=== PATIENT | male | born 1960 | race Hispanic/Latino ===

== ENCOUNTER 2017-04-30 11:46 | Outpatient (CLI) | payer MEDICARE ==
--- NOTE | 2017-04-30 13:32 | XRay Report ---
AP standing right and left knee: Findings: There is narrowing noted of the medial compartment of the right and left knee joint. Sclerotic adjacent articular surfaces with peripheral osteophyte suggestive of severe degenerative changes being more pronounced at right knee. [id number] degenerative changes of the lateral compartment. No soft tissue calcification. Impression: Findings as detailed above.
== END 2017-04-30 11:47 | disposition home or self-care (01) ==
LOC: XRAY 11:46
PROVIDERS: ATTEND General Practice
DX: M17.0 Bilateral primary osteoarthritis of knee (principal); M25.551 Pain in right hip
CPT/HCPCS: 73565

== ENCOUNTER 2017-11-04 11:58 | Emergency (ER) | payer MEDICARE ==
[2017-11-04] MEDS ORDERED: LASIX IV ONE (13:03)
--- NOTE | 2017-11-04 13:09 | Emergency Department Report ---
ED General Adult HPI - General Chief complaint: Extremity Injury, Lower Stated complaint: LEG PAIN/WEAKNESS Time Seen by Provider: 11/04/17 12:52 Source: patient, EMS Mode of arrival: Stretcher Limitations: Physical Limitation - History of Present Illness Initial comments: Patient is 57 years old male morbidly obese with history of congestive heart failure and chronic bilateral lower extremity lymphedema. Patient supposed to be on Lasix but he stated that he does not have any medication. He presented today with bilateral lower extremity swelling and pain. Patient denied any chest pain or shortness of breath or any other complaint. He stated that he just wants something to help with his lower extremity swelling and pain. - Related Data Home Medications Medication Instructions Recorded Confirmed Last Taken Allopurinol 300 mg PO QDAY 09/07/13 09/07/13 Unknown Previous Rx's Medication Instructions Recorded Last Taken Type Saccharomyces Boulardii [Florastor] 250 mg PO BID #20 capsule 12/10/14 Unknown Rx Levofloxacin [Levaquin] 250 mg PO QDAY #2 tablet 12/11/14 Unknown Rx Furosemide [Lasix] 20 mg PO BID #20 tablet 11/04/17 Unknown Rx Potassium Chloride [K-Dur] 10 meq PO QDAY #20 tablet 11/04/17 Unknown Rx Allergies Allergy/AdvReac Type Severity Reaction Status Date / Time No Known Allergies Allergy Verified 09/07/13 20:20 ED Review of Systems ROS: Stated complaint: LEG PAIN/WEAKNESS Other details as noted in HPI Comment: All other systems reviewed and negative Constitutional: denies: chills, fever Respiratory: denies: cough, shortness of breath, SOB with exertion Cardiovascular: denies: chest pain, palpitations, dyspnea on exertion Gastrointestinal: denies: abdominal pain, nausea, vomiting, diarrhea, constipation, hematemesis Musculoskeletal: denies: back pain Neurological: denies: headache, weakness ED Past Medical Hx - Past Medical History Hx Hypertension: Yes Hx Congestive Heart Failure: Yes Hx Diabetes: No Hx Asthma: No Hx COPD: No Hx HIV: No Additional medical history: gout, peripheral vascular disease - Surgical History Additional Surgical History: debridement of Right leg - Social History Smoking Status: Never Smoker Substance Use Type: None - Medications Home Medications: Home Medications Medication Instructions Recorded Confirmed Last Taken Type Allopurinol 300 mg PO QDAY 09/07/13 09/07/13 Unknown History Saccharomyces Boulardii [Florastor] 250 mg PO BID #20 capsule 12/10/14 Unknown Rx Levofloxacin [Levaquin] 250 mg PO QDAY #2 tablet 12/11/14 Unknown Rx Furosemide [Lasix] 20 mg PO BID #20 tablet 11/04/17 Unknown Rx Potassium Chloride [K-Dur] 10 meq PO QDAY #20 tablet 11/04/17 Unknown Rx ED Physical Exam - General Limitations: Physical Limitation General appearance: alert, in no apparent distress, other (patient is morbidly obese) - Head Head exam: Present: atraumatic, normocephalic - Eye Eye exam: Present: normal appearance, PERRL - ENT ENT exam: Present: normal exam, normal orophraynx, mucous membranes moist - Neck Neck exam: Present: normal inspection, full ROM. Absent: meningismus - Respiratory Respiratory exam: Present: normal lung sounds bilaterally. Absent: respiratory distress, wheezes, rales, rhonchi, stridor, chest wall tenderness, accessory muscle use, decreased breath sounds, prolonged expiratory - Cardiovascular Cardiovascular Exam: Present: regular rate, normal rhythm, normal heart sounds - GI/Abdominal GI/Abdominal exam: Present: soft, normal bowel sounds. Absent: distended, tenderness, guarding, rebound, rigid, organomegaly, mass, bruit, pulsatile mass - Extremities Exam Extremities exam: Present: normal inspection, pedal edema (4+) - Back Exam Back exam: Present: normal inspection. Absent: tenderness, CVA tenderness (R), CVA tenderness (L) - Neurological Exam Neurological exam: Present: alert, oriented X3, CN II-XII intact - Skin Skin exam: Present: warm, intact, normal color ED Course Vital Signs 11/04/17 12:41 Temperature 98.8 F Pulse Rate 109 H Respiratory 17 Rate Blood Pressure 135/82 O2 Sat by Pulse 98 Oximetry - Reevaluation(s) Reevaluation #1: 11/04/17 17:13 Patient stated that he is feeling much better. He denied chest pain and shortness of breath. ED Medical Decision Making - Lab Data Result diagrams: 11/04/17 13:09 11/04/17 13:09 Critical care attestation.: If time is entered above; I have spent that time in minutes in the direct care of this critically ill patient, excluding procedure time. ED Disposition Clinical Impression: Peripheral edema, Lymphedema Disposition: - TO HOME OR SELFCARE Is pt being admited?: No Condition: Stable Instructions: Leg Edema (ED), Lymphedema (ED) Prescriptions: Furosemide [Lasix] 20 mg PO BID #20 tablet Potassium Chloride [K-Dur] 10 meq PO QDAY #20 tablet Referrals: PRIMARY CARE, [Primary Care Provider] - 3-5 Days
[2017-11-04 13:30] LABS: Basophils % (Auto) 0.5 % (0.0-1.8); Eosinophils % (Auto) 0.6 % (0.0-4.3); Hematocrit 31.3 % (35.5-45.6); Mean Corpuscular HGB Conc 32 % (32-34); Platelet Count 239 K/mm3 (140-440); Red Cell Distribution Width 17.6 % (13.2-15.2); White Blood Count 8.1 K/mm3 (4.5-11.0)
[2017-11-04 13:35] LABS: Mean Corpuscular Hemoglobin 21 pg (28-32); Mean Corpuscular Volume 65 fl (84-94)
[2017-11-04 13:46] LABS: Alanine Aminotransferase 10 units/L (7-56); Albumin 3.1 g/dL (3.9-5); Albumin/Globulin Ratio 0.8 %; Alkaline Phosphatase 117 units/L (35-129); Anion Gap 17 mmol/L; BUN/Creatinine Ratio 13; Blood Urea Nitrogen 12 mg/dL (9-20); Calcium 8.2 mg/dL (8.4-10.2); Carbon Dioxide 25 mmol/L (22-30); Chloride 106.4 mmol/L (98-107); Glucose 113 mg/dL (75-100); Potassium 4.2 mmol/L (3.6-5.0); Sodium 144 mmol/L (137-145); Total Protein 7.2 g/dL (6.3-8.2)
[2017-11-05 06:00] VITALS: BP 126/76
== END 2017-11-05 06:45 | disposition home or self-care (01) ==
LOC: ED 11:58
DX: R60.0 Localized edema (principal); I89.0 Lymphedema, not elsewhere classified; I10 Essential (primary) hypertension
CPT/HCPCS: 36415; 80053; 83880; 85025; 96374; 99284; J1940

== ENCOUNTER 2018-02-18 16:51 | Inpatient (IN) | payer MEDICARE ==
[2018-02-18] MEDS ORDERED: VANCOMYCIN VIAL IV ONE (18:41)
[2018-02-18] MEDS ORDERED: NACL 0.9% 1000 ML 1,000 ML IV ONE ×2 (18:42→20:09)
[2018-02-18] MEDS ORDERED: VANCOMYCIN PHARMACY TO DOSE IV SCH (19:00)
[2018-02-18] MEDS ORDERED: ZOSYN/NS 4.5GM/100ML 4.5 GM/100 ML VIAL IV SCH (19:00)
[2018-02-18 19:03] LABS: Basophils % (Auto) 0.2 % (0.0-1.8); Eosinophils % (Auto) 0.1 % (0.0-4.3); Hemoglobin 9.5 gm/dl (11.8-15.2); Lymphocytes # (Auto) 1.2 K/mm3 (1.2-5.4); Lymphocytes % (Auto) 8.8 % (13.4-35.0); Mean Corpuscular HGB Conc 32 % (32-34); Monocytes # (Auto) 0.7 K/mm3 (0.0-0.8); Monocytes % (Auto) 5.3 % (0.0-7.3); Platelet Count 308 K/mm3 (140-440); Red Cell Distribution Width 17.4 % (13.2-15.2)
[2018-02-18 19:04] LABS: Mean Corpuscular Hemoglobin 20 pg (28-32); Mean Corpuscular Volume 64 fl (84-94)
[2018-02-18 19:13] LABS: INR 1.3 (0.87-1.13)
[2018-02-18 19:14] LABS: Partial Thromboplastin Time 37.6 Sec. (24.2-36.6)
[2018-02-18 19:15] LABS: Albumin 2.3 g/dL (3.9-5); Calcium 7.7 mg/dL (8.4-10.2)
[2018-02-18 19:25] LABS: Free T4 (Free Thyroxine) 0.99 ng/dL (0.76-1.46)
--- NOTE | 2018-02-18 19:55 | Cat Scan Report ---
FINAL REPORT PROCEDURE: CT HEAD/BRAIN WO CON TECHNIQUE: Computerized tomography of the head was performed without contrast material. Patient positioning limits evaluation. 1172.26 mGy-cm. HISTORY: Right facial droop, depressed mental status. COMPARISON: No prior studies are available for comparison. FINDINGS: Skull and scalp: Degenerative changes at the predental interval. Paranasal sinuses: Normal. Ventricles and subarachnoid spaces: Ventricles are prominent, likely in proportion to the degree of atrophy. Cerebrum: No evidence of hemorrhage, acute infarction or mass. Mild atrophy. Subtle periventricular white matter low attenuation. Cerebellum and brainstem: No evidence of hemorrhage, acute infarction or mass. More focal low attenuation about the right cerebellum/posterior fossa. Vasculature: Normal. Comments: None. IMPRESSION: Atrophy. White matter changes likely chronic small vessel ischemic change. More focal low attenuation in the right cerebellum/posterior fossa, could be related to patient positioning, but also consider encephalomalacia from prior ischemia/infarction. Evaluation is limited by patient positioning. Recommend repeat examination or MRI for further characterization if there is continued clinical concern and if patient has no contraindication to MRI.
[2018-02-18] MEDS ORDERED: NS IV ONE (20:00)
[2018-02-18] MEDS ORDERED: VANCOMYCIN IV ONE (20:00)
--- NOTE | 2018-02-18 21:19 | Emergency Department Report ---
ED General Adult HPI - General Chief complaint: Medical Clearance Stated complaint: MEDICAL CLEARANCE Time Seen by Provider: 02/18/18 18:24 Source: patient, EMS Mode of arrival: Stretcher Limitations: Physical Limitation - History of Present Illness Initial comments: 57-year-old male with a past medical history morbid obesity, hypertension, PVD, gout, and chronic right leg ulcer presents to the hospital because he is unable to care for himself. Patient apparently has a sitter that comes to the house 3 times a week for 3 hours a day and states he needs more assistance. Patient is drowsy upon arrival and only answering questions intermittently. Right facial droop noted. Tachycardic upon presentation. No further history of present illness available Severity scale (0 -10): 0 - Related Data Home Medications Medication Instructions Recorded Confirmed Last Taken Allopurinol 300 mg PO QDAY 09/07/13 09/07/13 Unknown Previous Rx's Medication Instructions Recorded Last Taken Type Saccharomyces Boulardii [Florastor] 250 mg PO BID #20 capsule 12/10/14 Unknown Rx Levofloxacin [Levaquin] 250 mg PO QDAY #2 tablet 12/11/14 Unknown Rx Furosemide [Lasix] 20 mg PO BID #20 tablet 11/04/17 Unknown Rx Potassium Chloride [K-Dur] 10 meq PO QDAY #20 tablet 11/04/17 Unknown Rx Allergies Allergy/AdvReac Type Severity Reaction Status Date / Time No Known Allergies Allergy Verified 09/07/13 20:20 ED Review of Systems ROS: Stated complaint: MEDICAL CLEARANCE Other details as noted in HPI Comment: Unobtainable due to pts medical conditions (falling asleep during questioning) ED Past Medical Hx - Past Medical History Hx Hypertension: Yes Hx Congestive Heart Failure: Yes Hx Diabetes: No Hx Asthma: No Hx COPD: No Hx HIV: No Additional medical history: gout, peripheral vascular disease - Surgical History Additional Surgical History: debridement of Right leg - Social History Smoking Status: Never Smoker Substance Use Type: None - Medications Home Medications: Home Medications Medication Instructions Recorded Confirmed Last Taken Type Allopurinol 300 mg PO QDAY 09/07/13 09/07/13 Unknown History Saccharomyces Boulardii [Florastor] 250 mg PO BID #20 capsule 12/10/14 Unknown Rx Levofloxacin [Levaquin] 250 mg PO QDAY #2 tablet 12/11/14 Unknown Rx Furosemide [Lasix] 20 mg PO BID #20 tablet 11/04/17 Unknown Rx Potassium Chloride [K-Dur] 10 meq PO QDAY #20 tablet 11/04/17 Unknown Rx ED Physical Exam - General Limitations: Physical Limitation - Other Other exam information: General: Morbid obesity Head exam: Atraumatic, normocephalic Eyes exam: Normal appearance ENT: Moist mucous membrane, normal oropharynx Neck exam: Normal inspection, full range of motion, no meningismus nontender Respiratory exam: Clear to auscultation bilateral, no wheezes, rales, crackles Cardiovascular: Tachycardic regular rhythm Abdomen: Soft, nondistended, and nontender, with normal bowel sounds, no rebound, or guarding Extremity: Limited movement. Equal dorsiflexion. Hand reservations specialist. Significant bilateral lower extremity edema Back: Normal Inspection, full range of motion, no tenderness Neurologic: Lethargic but arousable to tactile stimulation. Oriented 1. Right -sided facial droop including the forehead. Equal hand reservations specialist and foot dorsiflexion Psychiatric: normal affect, normal mood Skin: Bilateral lower extremity edema. Chronic right leg ulcer noted. Bilateral erythema and warmth to the lower extremities. Significant tinea Miguel noted with superimposed cellulitis ED Course Vital Signs 02/18/18 02/18/18 02/18/18 17:02 17:10 17:17 Temperature 99.5 F Pulse Rate 127 H 126 H Respiratory 17 23 Rate Blood Pressure 138/65 138/65 Blood Pressure [Right] O2 Sat by Pulse 95 100 100 Oximetry 02/18/18 02/18/18 02/18/18 17:20 17:23 17:25 Temperature 99.5 F Pulse Rate 124 H 126 H Respiratory 20 23 23 Rate Blood Pressure 135/75 Blood Pressure 138/65 [Right] O2 Sat by Pulse 100 100 100 Oximetry 02/18/18 02/18/18 02/18/18 17:26 17:30 17:36 Temperature Pulse Rate 126 H 124 H 124 H Respiratory 22 22 20 Rate Blood Pressure 135/75 138/61 138/61 Blood Pressure [Right] O2 Sat by Pulse 100 100 99 Oximetry 02/18/18 02/18/18 02/18/18 17:40 17:45 17:50 Temperature Pulse Rate 125 H 123 H 124 H Respiratory 20 22 22 Rate Blood Pressure 138/61 134/61 134/61 Blood Pressure [Right] O2 Sat by Pulse 100 100 98 Oximetry 02/18/18 02/18/18 02/18/18 17:56 18:00 18:06 Temperature Pulse Rate 123 H 123 H 121 H Respiratory 19 19 24 Rate Blood Pressure 134/61 134/61 127/58 Blood Pressure [Right] O2 Sat by Pulse 99 96 97 Oximetry 02/18/18 02/18/18 02/18/18 18:10 18:15 18:20 Temperature Pulse Rate 121 H 122 H 122 H Respiratory 16 18 18 Rate Blood Pressure 127/58 119/57 119/57 Blood Pressure [Right] O2 Sat by Pulse 97 97 95 Oximetry 02/18/18 02/18/18 02/18/18 18:26 18:30 18:36 Temperature Pulse Rate 122 H 125 H 124 H Respiratory 18 25 H 20 Rate Blood Pressure 119/57 131/60 131/60 Blood Pressure [Right] O2 Sat by Pulse 97 97 97 Oximetry 02/18/18 02/18/18 02/18/18 18:40 18:45 18:50 Temperature Pulse Rate 125 H 124 H 124 H Respiratory 22 21 20 Rate Blood Pressure 131/60 134/54 134/54 Blood Pressure [Right] O2 Sat by Pulse 97 97 98 Oximetry 02/18/18 02/18/18 02/18/18 18:56 19:00 19:06 Temperature Pulse Rate 123 H 123 H 123 H Respiratory 21 24 22 Rate Blood Pressure 134/54 131/60 112/52 Blood Pressure [Right] O2 Sat by Pulse 97 96 97 Oximetry 02/18/18 02/18/18 02/18/18 19:10 19:15 19:20 Temperature Pulse Rate 121 H 122 H 120 H Respiratory 24 24 36 H Rate Blood Pressure 112/52 121/56 121/56 Blood Pressure [Right] O2 Sat by Pulse 97 96 97 Oximetry 02/18/18 02/18/18 02/18/18 20:22 20:30 20:40 Temperature Pulse Rate 123 H 123 H 122 H Respiratory 24 20 19 Rate Blood Pressure 112/52 116/58 116/58 Blood Pressure [Right] O2 Sat by Pulse 97 95 91 Oximetry 02/18/18 02/18/18 02/18/18 20:50 21:00 21:10 Temperature Pulse Rate 123 H 130 H 123 H Respiratory 24 37 H 26 H Rate Blood Pressure 116/58 127/58 116/58 Blood Pressure [Right] O2 Sat by Pulse 95 96 Oximetry 02/18/18 02/18/18 02/18/18 21:20 21:30 21:40 Temperature Pulse Rate 122 H 120 H 120 H Respiratory 21 16 16 Rate Blood Pressure 116/58 121/54 121/54 Blood Pressure [Right] O2 Sat by Pulse 95 93 90 Oximetry 02/18/18 02/18/18 02/18/18 21:50 22:00 22:10 Temperature Pulse Rate 121 H 119 H 119 H Respiratory 17 17 16 Rate Blood Pressure 121/54 117/56 121/54 Blood Pressure [Right] O2 Sat by Pulse 75 L 89 89 Oximetry 02/18/18 02/18/18 02/18/18 22:20 22:30 22:40 Temperature Pulse Rate 117 H 120 H 121 H Respiratory 16 17 16 Rate Blood Pressure 121/54 121/52 117/56 Blood Pressure [Right] O2 Sat by Pulse 84 89 82 L Oximetry 02/18/18 02/18/18 02/18/18 22:50 23:00 23:10 Temperature Pulse Rate 120 H 123 H 127 H Respiratory 19 24 25 H Rate Blood Pressure 117/56 115/54 121/52 Blood Pressure [Right] O2 Sat by Pulse 95 80 L 85 Oximetry 02/18/18 02/18/18 02/18/18 23:18 23:20 23:24 Temperature 98 F Pulse Rate 119 H 120 H Respiratory 17 17 Rate Blood Pressure 121/52 121/52 Blood Pressure [Right] O2 Sat by Pulse 87 88 Oximetry 02/18/18 02/18/18 02/18/18 23:30 23:32 23:40 Temperature 98 F Pulse Rate 123 H 123 H Respiratory 22 21 Rate Blood Pressure 106/60 106/60 Blood Pressure [Right] O2 Sat by Pulse 92 93 Oximetry 02/18/18 02/19/18 02/19/18 23:50 00:00 00:10 Temperature Pulse Rate 116 H 118 H 128 H Respiratory 18 17 37 H Rate Blood Pressure 106/60 96/50 106/60 Blood Pressure [Right] O2 Sat by Pulse 96 96 97 Oximetry 02/19/18 00:20 Temperature Pulse Rate 116 H Respiratory 17 Rate Blood Pressure 106/60 Blood Pressure [Right] O2 Sat by Pulse 94 Oximetry - Reevaluation(s) Reevaluation #1: 02/18/18 22:44 Patient appears to be drowsy ED stay 02/18/18 22:49 Addition dilaudid ordered. Patient resting comfortably but states she is having significant pain. Patient's daughter coming out of the room multiple times over several hours and sitting the patient needs more pain medication. ED Medical Decision Making - Lab Data Result diagrams: 02/18/18 18:42 02/18/18 18:42 Lab Results 02/18/18 02/18/18 02/18/18 Range/Units 18:42 18:42 18:42 WBC 13.1 H (4.5-11.0) K/mm3 RBC 4.70 (3.65-5.03) M/mm3 Hgb 9.5 L (11.8-15.2) gm/dl Hct 30.0 L (35.5-45.6) % MCV 64 L (84-94) fl MCH 20 L (28-32) pg MCHC 32 (32-34) % RDW 17.4 H (13.2-15.2) % Plt Count 308 (140-440) K/mm3 Lymph % (Auto) 8.8 L (13.4-35.0) % [place] % (Auto) 5.3 (0.0-7.3) % Eos % (Auto) 0.1 (0.0-4.3) % Baso % (Auto) 0.2 (0.0-1.8) % Lymph # 1.2 (1.2-5.4) K/mm3 [place] # 0.7 (0.0-0.8) K/mm3 Eos # 0.0 (0.0-0.4) K/mm3 Baso # 0.0 (0.0-0.1) K/mm3 Seg Neutrophils % 85.6 H (40.0-70.0) % Seg Neutrophils # 11.2 H (1.8-7.7) K/mm3 PT 16.9 H (12.2-14.9) Sec. INR 1.30 H (0.87-1.13) APTT 37.6 H (24.2-36.6) Sec. VBG pH (7.320-7.420) Sodium 132 L (137-145) mmol/L Potassium 3.6 (3.6-5.0) mmol/L Chloride 96.4 L (98-107) mmol/L Carbon Dioxide 24 (22-30) mmol/L Anion Gap 15 mmol/L BUN 28 H (9-20) mg/dL Creatinine 1.4 (0.8-1.5) mg/dL Estimated GFR 52 ml/min BUN/Creatinine Ratio 20 % Glucose 153 H (75-100) mg/dL POC Glucose (70-105) Lactic Acid (0.7-2.0) mmol/L Calcium 7.7 L (8.4-10.2) mg/dL Total Bilirubin 1.00 (0.1-1.2) mg/dL AST 29 (5-40) units/L ALT 15 (7-56) units/L Alkaline Phosphatase 148 H (35-129) units/L Total Protein 6.5 (6.3-8.2) g/dL Albumin 2.3 L (3.9-5) g/dL Albumin/Globulin Ratio 0.5 % TSH (0.270-4.200) mlU/mL Free T4 (0.76-1.46) ng/dL 02/18/18 02/18/18 02/18/18 Range/Units 18:42 18:42 18:42 WBC (4.5-11.0) K/mm3 RBC (3.65-5.03) M/mm3 Hgb (11.8-15.2) gm/dl Hct (35.5-45.6) % MCV (84-94) fl MCH (28-32) pg MCHC (32-34) % RDW (13.2-15.2) % Plt Count (140-440) K/mm3 Lymph % (Auto) (13.4-35.0) % [place] % (Auto) (0.0-7.3) % Eos % (Auto) (0.0-4.3) % Baso % (Auto) (0.0-1.8) % Lymph # (1.2-5.4) K/mm3 [place] # (0.0-0.8) K/mm3 Eos # (0.0-0.4) K/mm3 Baso # (0.0-0.1) K/mm3 Seg Neutrophils % (40.0-70.0) % Seg Neutrophils # (1.8-7.7) K/mm3 PT (12.2-14.9) Sec. INR (0.87-1.13) APTT (24.2-36.6) Sec. VBG pH 7.396 (7.320-7.420) Sodium (137-145) mmol/L Potassium (3.6-5.0) mmol/L Chloride (98-107) mmol/L Carbon Dioxide (22-30) mmol/L Anion Gap mmol/L BUN (9-20) mg/dL Creatinine (0.8-1.5) mg/dL Estimated GFR ml/min BUN/Creatinine Ratio % Glucose (75-100) mg/dL POC Glucose (70-105) Lactic Acid 1.80 (0.7-2.0) mmol/L Calcium (8.4-10.2) mg/dL Total Bilirubin (0.1-1.2) mg/dL AST (5-40) units/L ALT (7-56) units/L Alkaline Phosphatase (35-129) units/L Total Protein (6.3-8.2) g/dL Albumin (3.9-5) g/dL Albumin/Globulin Ratio % TSH 3.090 (0.270-4.200) mlU/mL Free T4 0.99 (0.76-1.46) ng/dL 02/18/18 Range/Units 18:56 WBC (4.5-11.0) K/mm3 RBC (3.65-5.03) M/mm3 Hgb (11.8-15.2) gm/dl Hct (35.5-45.6) % MCV (84-94) fl MCH (28-32) pg MCHC (32-34) % RDW (13.2-15.2) % Plt Count (140-440) K/mm3 Lymph % (Auto) (13.4-35.0) % [place] % (Auto) (0.0-7.3) % Eos % (Auto) (0.0-4.3) % Baso % (Auto) (0.0-1.8) % Lymph # (1.2-5.4) K/mm3 [place] # (0.0-0.8) K/mm3 Eos # (0.0-0.4) K/mm3 Baso # (0.0-0.1) K/mm3 Seg Neutrophils % (40.0-70.0) % Seg Neutrophils # (1.8-7.7) K/mm3 PT (12.2-14.9) Sec. INR (0.87-1.13) APTT (24.2-36.6) Sec. VBG pH (7.320-7.420) Sodium (137-145) mmol/L Potassium (3.6-5.0) mmol/L Chloride (98-107) mmol/L Carbon Dioxide (22-30) mmol/L Anion Gap mmol/L BUN (9-20) mg/dL Creatinine (0.8-1.5) mg/dL Estimated GFR ml/min BUN/Creatinine Ratio % Glucose (75-100) mg/dL POC Glucose 219 H (70-105) Lactic Acid (0.7-2.0) mmol/L Calcium (8.4-10.2) mg/dL Total Bilirubin (0.1-1.2) mg/dL AST (5-40) units/L ALT (7-56) units/L Alkaline Phosphatase (35-129) units/L Total Protein (6.3-8.2) g/dL Albumin (3.9-5) g/dL Albumin/Globulin Ratio % TSH (0.270-4.200) mlU/mL Free T4 (0.76-1.46) ng/dL - Radiology Data Radiology results: report reviewed read by radiology Ct head noncontrast IMPRESSION: Atrophy. White matter changes likely chronic small vessel ischemic change. More focal low attenuation in the right cerebellum/posterior fossa, could be related to patient positioning, but also consider encephalomalacia from prior ischemia/infarction. Evaluation is limited by patient positioning. Recommend repeat examination or MRI for further characterization if there is continued clinical concern and if patient has no contraindication to MRI. cxr portable IMPRESSION: Left greater than right central vascular prominence and perihilar indistinctness. Left upper and lower lobe opacities. Consider findings could be partly related to patient rotation. Consider asymmetric congestive heart failure or pneumonitis. - Medical Decision Making We were unable to obtain a urine sample since nurse was unable to pass [place] catheter upon multiple attempts. Zosyn and vancomycin ordered for conjunctivitis. Heart rate improving to 109 with IV fluids. Patient will be admitted for further IV antibiotics and fluids for dehydration and cellulitis. Hospitalist informed - Differential Diagnosis debility, cva, encephalopathy, cellulitis Critical Care Time: No Critical care attestation.: If time is entered above; I have spent that time in minutes in the direct care of this critically ill patient, excluding procedure time. ED Disposition Clinical Impression: Tinea cruris, Cellulitis, Dehydration, Microcytic anemia, Chronic ulcer of right leg, Lymphedema of leg, Morbid obesity, Sleep apnea Disposition: OP ADMIT IP TO THIS HOSP Is pt being admited?: Yes Condition: Stable Time of Disposition: 21:18 (Dr Gupta/hosp)
[2018-02-18] MEDS: VANCOMYCIN 2,000 MG in NACL 0.9% 500 ML 500 ML IV SCH (22:40)
[2018-02-18] MEDS ORDERED: DILAUDID IV ONE (22:49)
[2018-02-18] MEDS ORDERED: TYLENOL PO PRN (22:55)
[2018-02-18] MEDS ORDERED: ZOFRAN IV PRN (22:57)
[2018-02-18] MEDS ORDERED: D50W (25GM) Syringe IV PRN (23:01)
--- NOTE | 2018-02-19 00:36 | XRay Report ---
FINAL REPORT PROCEDURE: XR CHEST 1V AP TECHNIQUE: A portable AP chest radiograph was obtained at 02/19/2018 04:30 ([facility]) . CPT 35415 HISTORY: Shortness of breath. COMPARISON: No prior studies are available for comparison. FINDINGS: Heart: Normal. Mediastinum/Vessels: Normal. Lungs/Pleural space: Left greater than right central vascular prominence and perihilar indistinctness. Left upper and lower lobe opacities. Bony thorax: No acute osseous abnormality. Life support devices: None. IMPRESSION: Left greater than right central vascular prominence and perihilar indistinctness. Left upper and lower lobe opacities. Consider findings could be partly related to patient rotation. Consider asymmetric congestive heart failure or pneumonitis.
[2018-02-19] MEDS: ZOSYN/NS 3.375GM/50ML 3.375 GM/50 ML BAG IV SCH ×3 (05:53→22:32)
--- NOTE | 2018-02-19 06:46 | History and Physical Report ---
CHIEF COMPLAINT: Skin excoriation in the groin area. HISTORY OF PRESENT ILLNESS: The patient is a 57-year-old with past history of morbid obesity, hypertension, peripheral vascular disease and gout, presenting to the hospital because of excoriation in the groin area and inability to take care of it. The patient was noted to be visited by his sister about 3 times a week, and the sister noted that the patient needs assistance. They have also complained of change in mental status and rapid heart disease. There is no history of fever, no history of chest pain, chills or shortness of breath. The patient was seen and presented for admission because of skin excoriation in the groin area and inability to take care of spells of rapid heartbeat. PAST MEDICAL HISTORY: Pertinent for hypertension, congestive heart failure, gout, peripheral vascular disease. PAST SURGICAL HISTORY: Pertinent for right leg surgery. FAMILY HISTORY: Noncontributory. SOCIAL HISTORY: The patient lives alone and is unable to take care of himself. Does not smoke, does not drink alcohol and does not use illicit. MEDICATIONS: The patient is on allopurinol 300 mg by mouth daily. ALLERGIES: There are no known drug allergies. REVIEW OF SYSTEMS: CONSTITUTIONAL: There is no fever, no chills. No diaphoresis. HEENT: There is no headache or sore throat. CARDIOVASCULAR: There is no chest pain or orthopnea. RESPIRATORY: There is no shortness of breath or cough. GASTROINTESTINAL: There is no nausea, no vomiting, no abdominal pain, diarrhea or constipation. NEUROLOGICAL: There is change in mental status with no numbness and no dizziness. MUSCULOSKELETAL: There is no joint pain, swelling. DERMATOLOGICAL: There is skin excoriation in the groin area. No itching. GENITOURINARY: There is no dysuria, hematuria or flank pain. Rest of system review is normal. PHYSICAL EXAMINATION: GENERAL: At the time of exam, the patient was found to be lethargic, but arousable and not in acute disease. VITAL SIGNS: Shows temperature of 98.5, pulse of 112, respirations 15, blood pressure 103/53, O2 sat of 95% on room air. HEENT: Show pupils to be equal, round, reactive to light and accommodating. Extraocular muscles are intact. NECK: Supple with no JVD or carotid bruit. CARDIOVASCULAR: Showed normal first and second heart sounds, with no gallops or murmurs. There is rapid heart rate. RESPIRATORY: Show good air entry on both sides of the lung with no abnormal breath sounds. GASTROINTESTINAL: Show abdomen to be full, soft, nontender with no organomegaly or rigidity. NEUROLOGIC: Shows the patient to be lethargic but arousable with no focal deficit. MUSCULOSKELETAL: Show no joint swelling or tenderness. DERMATOLOGICAL: Shows excoriation of skin in both groin areas with some fluid oozing out. GENITOURINARY: Shows no costovertebral angle tenderness. PERTINENT LABORATORY AND IMAGING STUDIES: The patient has CBC done with elevated white count of 13,100; with low hemoglobin of 9.5; low hematocrit of 30; with low MCV of 64 and CBC differential shows elevated neutrophilic count of 85.6%, with coagulation studies showing elevated PT of 16.9 and slightly elevated INR of 1.3. The patient's chemistry shows low sodium of 132, low chloride of 96.4, with normal potassium level, elevated BUN of 28, with normal creatinine and slightly low GFR of 52, with elevated blood glucose of 219 and low albumin level of 2.3. IMAGING STUDIES: The patient had CT of the head done that shows atrophic, with white matter likely chronic small vessel ischemic changes. There is finding of small local attenuation in the right cerebellum and posterior fossa, which the radiologist said could be related to patient positioning, but also considering encephalomalacia from prior ischemic infarction and radiology says that evaluation is limited by the patient positioning and they recommended repeat examination on MRI for further characterization if there is continued clinical concern and if the patient has no contraindication for MRI. The patient also had chest x-ray done and chest x-ray showed left greater than right central vascular prominence and perihilar indistinctness. He has left upper and lower lobe opacities and the radiologist states consider findings could be partly related to the patient's ____ to consider asymmetric congestive heart failure or pneumonitis. DIAGNOSES: 1. Cellulitis on the groin. 2. Tachycardia. 3. Hyperglycemia. PLAN: The patient will be admitted to medical floor and we will have consult with the wound care group. The patient will also be placed on a consistent carbohydrate diet because of finding of hyperglycemia. The patient will be on Accu-Chek a.c. and at bedtime, followed by sliding scale using Humalog insulin dose for coverage for blood sugar greater than 180 mg/dL. The patient will be on IV Zosyn 3.375 g q. 8 hours and will continue IV vancomycin with pharmacy to dose started by the Emergency Room physician. The patient will be on Tylenol 650 mg by mouth every 4 hours for fever and headache and will be on his own medications as shown in the medication reconciliation section. JOB# [id number] OCN/NTS
[2018-02-19] MEDS: HumuLIN R SUB-Q SCH ×3 (08:18→17:33)
[2018-02-19] MEDS: VANCOMYCIN 2,000 MG in NACL 0.9% 500 ML 500 ML IV SCH ×2 (08:30→22:32)
[2018-02-19 09:33] LABS: Basophils # (Auto) 0.1 K/mm3 (0.0-0.1); Basophils % (Auto) 0.5 % (0.0-1.8); Eosinophils # (Auto) 0.1 K/mm3 (0.0-0.4); Eosinophils % (Auto) 0.9 % (0.0-4.3); Hemoglobin 9.3 gm/dl (11.8-15.2); Lymphocytes # (Auto) 1.7 K/mm3 (1.2-5.4); Lymphocytes % (Auto) 16.2 % (13.4-35.0); Mean Corpuscular HGB Conc 32 % (32-34); Monocytes # (Auto) 0.4 K/mm3 (0.0-0.8); Monocytes % (Auto) 3.4 % (0.0-7.3); Platelet Count 316 K/mm3 (140-440); Red Blood Count 4.55 M/mm3 (3.65-5.03); Red Cell Distribution Width 17.3 % (13.2-15.2)
[2018-02-19 09:37] LABS: Mean Corpuscular Volume 64 fl (84-94)
[2018-02-19 09:38] LABS: Mean Corpuscular Hemoglobin 21 pg (28-32)
[2018-02-19 09:44] LABS: Calcium 7.7 mg/dL (8.4-10.2)
[2018-02-19] MEDS: MORPHINE IV PRN (10:17)
[2018-02-19] MEDS: HEPARIN SUB-Q SCH ×2 (12:05→22:46)
[2018-02-19] MEDS: LASIX PO SCH ×2 (12:07→22:45)
[2018-02-19] MEDS: LACTINEX PO SCH ×2 (12:07→22:45)
[2018-02-19] MEDS: K-DUR PO SCH (12:07)
[2018-02-19] MEDS: ZYLOPRIM PO SCH (12:07)
[2018-02-19 12:36] LABS: Bacteria,Urine 1+ /HPF (Negative); Bilirubin,Urine NEG (Negative); Blood,Urine MOD (Negative); Color,Urine Yellow (Yellow); Mucus,Urine FEW /HPF; Protein,Urine <15 mg/dL mg/dL (Negative)
--- NOTE | 2018-02-19 16:50 | Progress Note ---
Assessment and Plan Assessment and plan: Generalized weakness - Patient is not able to take care of himself, and needs placement Cellulitis of the groin area -Patient is on IV vancomycin and Zosyn -blood culture is positive gram positive cocci in clusters Chest x-ray - Opacity and plan was to do a CT scan but patient refused Hyperglycemia - SSI Sleep apnea - On CPAP DVT prophylaxis Disposition - SNF History Interval history: Patient was seen and evaluated this morning, patient was lying in bed comfortably. The main reason he come to the the hospital is for inability to taking care of himself. Hospitalist Physical - Physical exam Narrative exam: Not in cardiopulmonary distress. The patient is obese. Vital signs as documented. Head exam is unremarkable. No scleral icterus . Neck is without jugular venous distension, thyromegaly, or carotid bruits. Lungs are clear to auscultation. Cardiac exam reveals regular rate and Rhythm. First and second heart sounds normal. No murmurs, rubs or gallops. Abdominal exam reveals normal bowel sounds, no masses, no organomegaly and no aortic enlargement. Excoriation around the perineal area. Extremities are nonedematous and both femoral and pedal pulses are normal. HIGH PRESSURE FIRER: Alert and oriented 3. No focal weakness. - Constitutional Vitals: Temp Pulse Resp BP Pulse Ox 99.5 F 102 H 22 114/55 97 02/19/18 04:50 02/19/18 04:50 02/19/18 04:50 02/19/18 04:50 02/19/18 04:50 Results - Labs CBC & Chem 7: 02/19/18 09:24 02/19/18 09:24 Labs: Laboratory Last Values WBC 10.8 K/mm3 (4.5-11.0) 02/19/18 09:24 RBC 4.55 M/mm3 (3.65-5.03) 02/19/18 09:24 Hgb 9.3 gm/dl (11.8-15.2) L 02/19/18 09:24 Hct 29.0 % (35.5-45.6) L 02/19/18 09:24 MCV 64 fl (84-94) L 02/19/18 09:24 MCH 21 pg (28-32) L 02/19/18 09:24 MCHC 32 % (32-34) 02/19/18 09:24 RDW 17.3 % (13.2-15.2) H 02/19/18 09:24 Plt Count 316 K/mm3 (140-440) 02/19/18 09:24 Lymph % (Auto) 16.2 % (13.4-35.0) 02/19/18 09:24 [place] % (Auto) 3.4 % (0.0-7.3) 02/19/18 09:24 Eos % (Auto) 0.9 % (0.0-4.3) 02/19/18 09:24 Baso % (Auto) 0.5 % (0.0-1.8) 02/19/18 09:24 Lymph # 1.7 K/mm3 (1.2-5.4) 02/19/18 09:24 [place] # 0.4 K/mm3 (0.0-0.8) 02/19/18 09:24 Eos # 0.1 K/mm3 (0.0-0.4) 02/19/18 09:24 Baso # 0.1 K/mm3 (0.0-0.1) 02/19/18 09:24 Seg Neutrophils % 79.0 % (40.0-70.0) H 02/19/18 09:24 Seg Neutrophils # 8.5 K/mm3 (1.8-7.7) H 02/19/18 09:24 PT 16.9 Sec. (12.2-14.9) H 02/18/18 18:42 INR 1.30 (0.87-1.13) H 02/18/18 18:42 APTT 37.6 Sec. (24.2-36.6) H 02/18/18 18:42 VBG pH 7.396 (7.320-7.420) 02/18/18 18:42 Sodium 138 mmol/L (137-145) 02/19/18 09:24 Potassium 3.7 mmol/L (3.6-5.0) 02/19/18 09:24 Chloride 104.3 mmol/L (98-107) 02/19/18 09:24 Carbon Dioxide 22 mmol/L (22-30) 02/19/18 09:24 Anion Gap 15 mmol/L 02/19/18 09:24 BUN 23 mg/dL (9-20) H 02/19/18 09:24 Creatinine 1.3 mg/dL (0.8-1.5) 02/19/18 09:24 Estimated GFR 57 ml/min 02/19/18 09:24 BUN/Creatinine Ratio 18 % 02/19/18 09:24 Glucose 124 mg/dL (75-100) H 02/19/18 09:24 POC Glucose 106 (70-105) H 02/19/18 11:16 Lactic Acid 1.80 mmol/L (0.7-2.0) 02/18/18 18:42 Calcium 7.7 mg/dL (8.4-10.2) L 02/19/18 09:24 Total Bilirubin 1.00 mg/dL (0.1-1.2) 02/18/18 18:42 AST 29 units/L (5-40) 02/18/18 18:42 ALT 15 units/L (7-56) 02/18/18 18:42 Alkaline Phosphatase 148 units/L (35-129) H 02/18/18 18:42 Total Protein 6.5 g/dL (6.3-8.2) 02/18/18 18:42 Albumin 2.3 g/dL (3.9-5) L 02/18/18 18:42 Albumin/Globulin Ratio 0.5 % 02/18/18 18:42 TSH 3.090 mlU/mL (0.270-4.200) 02/18/18 18:42 Free T4 0.99 ng/dL (0.76-1.46) 02/18/18 18:42 Urine Color Yellow (Yellow) 02/18/18 Unknown Urine Turbidity Clear (Clear) 02/18/18 Unknown Urine pH 6.0 (5.0-7.0) 02/18/18 Unknown Ur Specific [place] 1.009 (1.003-1.030) 02/18/18 Unknown Urine Protein <15 mg/dl mg/dL (Negative) 02/18/18 Unknown Urine Glucose (UA) Neg mg/dL (Negative) 02/18/18 Unknown Urine Ketones Neg mg/dL (Negative) 02/18/18 Unknown Urine Blood Mod (Negative) 02/18/18 Unknown Urine Nitrite Neg (Negative) 02/18/18 Unknown Urine Bilirubin Neg (Negative) 02/18/18 Unknown Urine Urobilinogen 2.0 mg/dL (<2.0) 02/18/18 Unknown Ur Leukocyte Esterase Lg (Negative) 02/18/18 Unknown Urine WBC (Auto) 76.0 /HPF (0.0-6.0) H 02/18/18 Unknown Urine RBC (Auto) 25.0 /HPF (0.0-6.0) 02/18/18 Unknown U Epithel Cells (Auto) 1.0 /HPF (0-13.0) 02/18/18 Unknown Urine Bacteria (Auto) 1+ /HPF (Negative) 02/18/18 Unknown Urine Mucus Few /HPF 02/18/18 Unknown
[2018-02-19] MEDS: THERMAZENE 50 GRAM TP SCH (22:49)
[2018-02-20] MEDS: HumuLIN R SUB-Q SCH ×5 (00:17→21:55)
[2018-02-20 05:57] LABS: Basophils % (Auto) 0.4 % (0.0-1.8); Eosinophils # (Auto) 0.1 K/mm3 (0.0-0.4); Eosinophils % (Auto) 1.5 % (0.0-4.3); Hematocrit 27.8 % (35.5-45.6); Lymphocytes # (Auto) 1.7 K/mm3 (1.2-5.4); Lymphocytes % (Auto) 18.9 % (13.4-35.0); Mean Corpuscular HGB Conc 32 % (32-34); Monocytes # (Auto) 0.5 K/mm3 (0.0-0.8); Monocytes % (Auto) 5.1 % (0.0-7.3); Platelet Count 367 K/mm3 (140-440); Red Blood Count 4.34 M/mm3 (3.65-5.03); Red Cell Distribution Width 17.2 % (13.2-15.2)
[2018-02-20] MEDS: ZOSYN/NS 3.375GM/50ML 3.375 GM/50 ML BAG IV SCH (05:58)
[2018-02-20 06:05] LABS: Mean Corpuscular Hemoglobin 21 pg (28-32); Mean Corpuscular Volume 64 fl (84-94)
[2018-02-20] MEDS: MORPHINE IV PRN ×2 (06:20→23:55)
[2018-02-20 06:26] LABS: BUN/Creatinine Ratio 17; Blood Urea Nitrogen 20 mg/dL (9-20); Calcium 7.2 mg/dL (8.4-10.2); Hemolysis Index 19
[2018-02-20] MEDS: VANCOMYCIN 2,000 MG in NACL 0.9% 500 ML 500 ML IV SCH (08:16)
[2018-02-20] MEDS: ZYLOPRIM PO SCH (10:27)
[2018-02-20] MEDS: LASIX PO SCH ×2 (10:27→21:49)
[2018-02-20] MEDS: K-DUR PO SCH (10:27)
[2018-02-20] MEDS: HEPARIN SUB-Q SCH ×2 (10:27→21:49)
[2018-02-20] MEDS: LACTINEX PO SCH ×2 (10:27→21:49)
[2018-02-20] MEDS: THERMAZENE 50 GRAM TP SCH ×2 (10:28→21:50)
[2018-02-20] MEDS ORDERED: ZOSYN/NS 4.5GM/100ML 4.5 GM/100 ML VIAL IV SCH (14:00)
--- NOTE | 2018-02-20 15:26 | Query- Nutrition ---
Dear ____Lila Date:__02/20/2018 Turkey Roll Maker/CDS:___Eduarda Phone#:___[phone] Exercise your independent professional judgment when responding to query. Questions asked do not imply a particular answer is desired or expected. We greatly appreciate your clarification on this issue. Clinical Documentation States: 57 Year old male was admitted on 02/18/2018 for inability to taking care of himself. The Hospitalist (Dr. Sharp) progress note on 02/19/2018 states "Generalized weakness - Patient is not able to take care of himself, and needs placement." Clinical Findings Show: Albumin (02/18): 2.3 Please select the most appropriate option 3 [] Mild Malnutrition [] Mild - Moderate Malnutrition [x] Moderate - Severe Malnutrition [] Severe Malnutrition Serum Albumin 2.8 to 3.4 g/dl or Pre-albumin 5 to 17 mg/dl1,2 Inadequate nutritional intake1,2,3,4 NPO > 5 days Weight loss: 5% in 1 month or 7.5% in 3 months or 10% in 6 months1, 3,4 BMI 16 to 18.4 or Weight <90% of ideal body weight1,2,3,4 Serum Albumin < 2.8 g/ dl1,2 Lymphocytes < 1500/ L2 Inadequate nutritional intake3, high stress e.g. major trauma, sepsis,pancreatitis, leavitt etc. Decubitus ulcers1,2, , skin breakdown2, easy hair pluckability2 Weight <80% standard for height2 Triceps skin fold <3 mm2 Mid-arm muscle circumference <15 cm2 Creatinine-height index <60% standard2 [ ] Cachexia [ ] Emaciated w/Malnutrition [ ] Other: [ ] Unable to determine [ ] Comment/Explanation: Present on Admission: [ x] Yes (Y) [ ] Clinically undeterminable (W) [ ] No (N) Please also document response in your Progress Notes and/or Discharge Summary and indicate if the condition was present on admission. MTDD
--- NOTE | 2018-02-20 15:34 | Query-Infection ---
Dear ____Lila Date:__02/20/2018 Account Development Executive/CDS:___Eduarda Phone#:__[phone] Exercise your independent professional judgment when responding to this query. Questions asked do not imply a particular answer is desired or expected. We greatly appreciate your clarification on this issue. Clinical Documentation States: 57 Year old male was admitted on 02/18/2018 for inability to taking care of himself. The Hospitalist (Dr. Sharp) progress note on 02/19/2018 states "Cellulitis of the groin area -Patient is on IV vancomycin and Zosyn -blood culture is positive gram positive cocci in clusters." Clinical findings show: (please check applicable parameters) WBC: 13.1 PA: 127 RR: 37 Infection, known /suspected, with some of the following indicators; Specify the infection: 3 General parameters [ ] Fever (core temp >38.30C or 100.40F) [ ] Hypothermia (core temp <36C) [X] Heart rate >90 bpm [X] Tachypnea: >20 bpm or pCO2 < 32 mmHg [ ] Altered mental status [ ] Significant edema / +ve fluid balance (>20 ml/kg 24 h) [ ] Hyperglycemia (Bl. glucose >110 mg/dl) w/o diabetes Inflammatory parameters [X] Leukocytosis (white blood cell count >12,000/l) [ ] Leukopenia (white blood cell count <4,000/l) [ ] Bandemia (immature WBC > 10%) [ ] Leucocyte Left Shift [ ] Plasma procalcitonin>2 SD above the normal value Hemodynamic and tissue perfusion parameters [ ] Arterial hypotension(SBP <90 mmHg, MAP <70 mmHg,or a SBP drop >40 mmHg in adults) [ ] Hyperlactatemia (>3 mmol/l) [ ] Anion Gap (> 11mEG/l) [ ] Decreased capillary refill or mottling Organ dysfunction parameters [ ] Arterial hypoxemia (PaO2/FIO2 <300) [ ] Creatinine increase =0.5 mg/dl [ ] Acute oliguria (urine output <0.5 ml | kg |h or 45 mM/l for at least 2 hrs) [ ] Coagulation abnormalities (INR >1.5 or activated partial thromboplastin time >60 s) [ ] Ileus (absent alex wel sounds) [ ] Thrombocytopenia (platelet count <100,000/l) [ ] Hyperbilirubinemia (plasma total bilirubin >4 mg/dl) According to the clinical indications above, can Bacteremia be further specified? If so, please indicate below and in your Progress Notes and/ or Discharge Summary. Indicate if the condition was present on admission. PHYSICIAN RESPONSE: [ x] Sepsis [ ] Severe Sepsis [ ] Septic Shock [ ] Septicemia [ ] Sepsis now resolved [ ] SIRS due to non-infectious cause with organ dysfunction [ ] SIRS due to non-infectious cause without organ dysfunction [ ] Other: [ ] Comment/Explanation: Present on Admission: [ x] Yes (Y) [ ] Clinically undeterminable (W) [ ] No (N) [ ] Ruled Out Please also document response in your Progress Notes and/or Discharge Summary and indicate if the condition was present on admission Notes: SIRS/ SIRS WITH ORGAN DYSFUNCTION Systemic inflammatory response syndrome (SIRS) generally refers to the systemic response to trauma/leavitt or other insult such as Acute Myocardial Infarction, Acute Pancreatitis, and Major Surgery with symptoms including fever, tachycardia , tachypnea, and leukocytosis (1). BACTEREMIA Presence of viable bacteria in the circulating blood (2). This term is reserved for patients that do not manifest above SIRS response. SEPTICEMIA Generally refers to a systemic disease associated with the presence of pathological microorganisms or toxins in the blood, which can include bacteria, viruses, fungi or other organisms (1). SEPSIS Generally refers to SIRS due infection (1). SEVERE SEPSIS Generally refers to sepsis associated with acute organ dysfunction (1). SEPTIC SHOCK Generally refers to circulatory failure associated with severe sepsis (2), and defined as hypotension or hypoperfusion despite adequate fluid resuscitation (1 hour) (3). REFERENCES: 1. [place] [employer]/Society of Critical Care Medicine Consensus Conference. Definitions for sepsis and organ failure and guidelines for the use of innovative therapies in sepsis. Critical Care Med 1992;20:864 - 74. 2. Devon braun MM, Lucia MP, Saulo IZQUIERDO, Umair E, Sukhjinder D, Hunter D, Justin J, Fanny SM , Sonny JL, Capri G; International Sepsis Definitions Conference. 2001 SCCM/ESICM/ACCP/ATS/SIS International Sepsis Definitions Conference. Intensive Care Med. 2002;29(4):530-8. Epub 2002Feb 19. Review. PubMed PMID:21540077 3. ICD-9-CM Official Guidelines for Coding and Reporting 4. Medscape Drugs, Diseases and Procedures references 5. [employer] Textbook of Internal Medicine. 18th Edition MTDD
--- NOTE | 2018-02-20 15:56 | Progress Note ---
Assessment and Plan Assessment and plan: Generalized weakness - Patient is not able to take care of himself, and needs placement Cellulitis of the groin area -Patient is on KEFLEX AND ANTIFUNGAL POWDER -blood culture is positive gram positive cocci in clusters Chest x-ray - Opacity and plan was to do a CT scan but patient refused Hyperglycemia - SSI Sleep apnea - On CPAP DVT prophylaxis Disposition - SNF History Interval history: Patient was seen and evaluated this morning, patient was lying in bed comfortably. The main reason he come to the the hospital is for inability to taking care of himself. Hospitalist Physical - Physical exam Narrative exam: Not in cardiopulmonary distress. The patient is obese. Vital signs as documented. Head exam is unremarkable. No scleral icterus . Neck is without jugular venous distension, thyromegaly, or carotid bruits. Lungs are clear to auscultation. Cardiac exam reveals regular rate and Rhythm. First and second heart sounds normal. No murmurs, rubs or gallops. Abdominal exam reveals normal bowel sounds, no masses, no organomegaly and no aortic enlargement. Excoriation around the perineal area. Extremities are nonedematous and both femoral and pedal pulses are normal. JET INSPECTOR: Alert and oriented 3. No focal weakness. - Constitutional Vitals: Temp Pulse Resp BP Pulse Ox 98.9 F 115 H 24 112/74 96 02/20/18 07:31 02/20/18 07:31 02/20/18 07:31 02/20/18 07:31 02/20/18 07:31 Results - Labs CBC & Chem 7: 02/20/18 04:48 02/20/18 04:48 Labs: Laboratory Last Values WBC 8.9 K/mm3 (4.5-11.0) 02/20/18 04:48 RBC 4.34 M/mm3 (3.65-5.03) 02/20/18 04:48 Hgb 9.0 gm/dl (11.8-15.2) L 02/20/18 04:48 Hct 27.8 % (35.5-45.6) L 02/20/18 04:48 MCV 64 fl (84-94) L 02/20/18 04:48 MCH 21 pg (28-32) L 02/20/18 04:48 MCHC 32 % (32-34) 02/20/18 04:48 RDW 17.2 % (13.2-15.2) H 02/20/18 04:48 Plt Count 367 K/mm3 (140-440) 02/20/18 04:48 Lymph % (Auto) 18.9 % (13.4-35.0) 02/20/18 04:48 [place] % (Auto) 5.1 % (0.0-7.3) 02/20/18 04:48 Eos % (Auto) 1.5 % (0.0-4.3) 02/20/18 04:48 Baso % (Auto) 0.4 % (0.0-1.8) 02/20/18 04:48 Lymph # 1.7 K/mm3 (1.2-5.4) 02/20/18 04:48 [place] # 0.5 K/mm3 (0.0-0.8) 02/20/18 04:48 Eos # 0.1 K/mm3 (0.0-0.4) 02/20/18 04:48 Baso # 0.0 K/mm3 (0.0-0.1) 02/20/18 04:48 Seg Neutrophils % 74.1 % (40.0-70.0) H 02/20/18 04:48 Seg Neutrophils # 6.6 K/mm3 (1.8-7.7) 02/20/18 04:48 PT 16.9 Sec. (12.2-14.9) H 02/18/18 18:42 INR 1.30 (0.87-1.13) H 02/18/18 18:42 APTT 37.6 Sec. (24.2-36.6) H 02/18/18 18:42 VBG pH 7.396 (7.320-7.420) 02/18/18 18:42 Sodium 140 mmol/L (137-145) 02/20/18 04:48 Potassium 3.9 mmol/L (3.6-5.0) 02/20/18 04:48 Chloride 103.0 mmol/L (98-107) 02/20/18 04:48 Carbon Dioxide 23 mmol/L (22-30) 02/20/18 04:48 Anion Gap 18 mmol/L 02/20/18 04:48 BUN 20 mg/dL (9-20) 02/20/18 04:48 Creatinine 1.2 mg/dL (0.8-1.5) 02/20/18 04:48 Estimated GFR > 60 ml/min 02/20/18 04:48 BUN/Creatinine Ratio 17 % 02/20/18 04:48 Glucose 94 mg/dL (75-100) 02/20/18 04:48 POC Glucose 107 (70-105) H 02/20/18 11:46 Lactic Acid 1.80 mmol/L (0.7-2.0) 02/18/18 18:42 Calcium 7.2 mg/dL (8.4-10.2) L 02/20/18 04:48 Total Bilirubin 1.00 mg/dL (0.1-1.2) 02/18/18 18:42 AST 29 units/L (5-40) 02/18/18 18:42 ALT 15 units/L (7-56) 02/18/18 18:42 Alkaline Phosphatase 148 units/L (35-129) H 02/18/18 18:42 Total Protein 6.5 g/dL (6.3-8.2) 02/18/18 18:42 Albumin 2.3 g/dL (3.9-5) L 02/18/18 18:42 Albumin/Globulin Ratio 0.5 % 02/18/18 18:42 TSH 3.090 mlU/mL (0.270-4.200) 02/18/18 18:42 Free T4 0.99 ng/dL (0.76-1.46) 02/18/18 18:42 Urine Color Yellow (Yellow) 02/18/18 Unknown Urine Turbidity Clear (Clear) 02/18/18 Unknown Urine pH 6.0 (5.0-7.0) 02/18/18 Unknown Ur Specific [place] 1.009 (1.003-1.030) 02/18/18 Unknown Urine Protein <15 mg/dl mg/dL (Negative) 02/18/18 Unknown Urine Glucose (UA) Neg mg/dL (Negative) 02/18/18 Unknown Urine Ketones Neg mg/dL (Negative) 02/18/18 Unknown Urine Blood Mod (Negative) 02/18/18 Unknown Urine Nitrite Neg (Negative) 02/18/18 Unknown Urine Bilirubin Neg (Negative) 02/18/18 Unknown Urine Urobilinogen 2.0 mg/dL (<2.0) 02/18/18 Unknown Ur Leukocyte Esterase Lg (Negative) 02/18/18 Unknown Urine WBC (Auto) 76.0 /HPF (0.0-6.0) H 02/18/18 Unknown Urine RBC (Auto) 25.0 /HPF (0.0-6.0) 02/18/18 Unknown U Epithel Cells (Auto) 1.0 /HPF (0-13.0) 02/18/18 Unknown Urine Bacteria (Auto) 1+ /HPF (Negative) 02/18/18 Unknown Urine Mucus Few /HPF 02/18/18 Unknown
[2018-02-20] MEDS: KEFLEX PO SCH ×2 (18:20→23:56)
[2018-02-21] MEDS: KEFLEX PO SCH ×2 (06:17→12:18)
[2018-02-21 07:20] VITALS: BP 110/59
[2018-02-21] MEDS: HumuLIN R SUB-Q SCH ×3 (08:14→20:19)
[2018-02-21] MEDS: MORPHINE IV PRN (09:50)
[2018-02-21] MEDS: HEPARIN SUB-Q SCH (10:51)
[2018-02-21] MEDS: ZYLOPRIM PO SCH (10:57)
[2018-02-21] MEDS: LASIX PO SCH (10:58)
[2018-02-21] MEDS: K-DUR PO SCH (10:58)
[2018-02-21] MEDS: LACTINEX PO SCH (10:58)
[2018-02-21] MEDS: THERMAZENE 50 GRAM TP SCH (10:59)
--- NOTE | 2018-02-21 13:31 | Discharge Summary ---
Providers - Providers Date of Admission: 02/18/18 22:50 Attending physician: RANJAN MUÑOZ MD 02/19/18 05:05 Consult to Case Management [CONS] Routine Services Needed at Discharge: Book Store Associate Notified:: Diane If yes, spoke with:: yes 02/19/18 06:58 Consult to Wound/ET Nurse [CONS] Routine Reason For Exam: wound eval 02/19/18 11:39 Occupational Therapy Evaluate and Treat [CONS] Routine Comment: SNF placement Reason For Exam: Debility Physical Therapy Evaluation and Treat [CONS] Routine Comment: SNF placement Reason For Exam: Debility Primary care physician: GREEN END DEPARTMENT SUPERVISOR Hospitalization Reason for admission: Celluitis of the groin area, placment Condition: Stable Pertinent studies: CXR shoed opacity, patient refused CT Hospital course: 57 year old CM with medical history significant for Bilateral lymphedema, Morbid obesity was admitted to the floor and for the management of sepsis around the groin area. Patient said he is not able to take care of himself. Patient was treated with antibiotic and home meds were continued. patient has abnormal CXR and I want to confirm with CT which he declined. Patient didn't have cough, SOB or chest pain. Patient is poor historian. Patient was discharged to SNF in a stable condition. Appropriate medications were ordered to continue in the SNF. Disposition: DC/[place]-03 SNF W [facility] C[facility] Time spent for discharge: 31 minutes - Discharge Diagnoses (1) Cellulitis Status: Acute (2) Chronic ulcer of right leg Status: Acute (3) Dehydration Status: Acute (4) Sleep apnea Status: Acute (5) Tinea cruris Status: Acute (6) Lymphedema of leg Status: Chronic (7) Microcytic anemia Status: Chronic (8) Morbid obesity Status: Chronic Core Measure Documentation - Palliative Care Palliative Care/ Comfort Measures: Not Applicable - Core Measures Any of the following diagnoses?: none Exam - Physical Exam Narrative exam: Not in cardiopulmonary distress. The patient is obese. Vital signs as documented. Head exam is unremarkable. No scleral icterus . Neck is without jugular venous distension, thyromegaly, or carotid bruits. Lungs are clear to auscultation. Cardiac exam reveals regular rate and Rhythm. First and second heart sounds normal. No murmurs, rubs or gallops. Abdominal exam reveals normal bowel sounds, no masses, no organomegaly and no aortic enlargement. Excoriation around the perineal area. Extremities are nonedematous and both femoral and pedal pulses are normal. REFRIGERATION SPECIALIST: Alert and oriented 3. No focal weakness. - Constitutional Vitals: Temp Pulse Resp BP Pulse Ox 98.5 F 100 H 22 110/59 96 02/21/18 07:15 02/21/18 07:15 02/21/18 09:50 02/21/18 07:15 02/21/18 07:15 Plan Activity: advance as tolerated Weight Bearing Status: Weight Bear as Tolerated Diet: low fat, low cholesterol Follow up with: PRIMARY CARE, [Primary Care Provider] - 7 Days Prescriptions: Cephalexin [Keflex] 500 mg PO Q8HR #21 capsule
--- NOTE | 2018-02-21 15:11 | Progress Note ---
Assessment and Plan Assessment and plan: Generalized weakness - Patient is not able to take care of himself, and needs placement Cellulitis of the groin area -Patient is on KEFLEX AND ANTIFUNGAL POWDER -blood culture is positive coagulase negative staph aurous Chest x-ray - Opacity and plan was to do a CT scan but patient refused Hyperglycemia - SSI Sleep apnea - On CPAP DVT prophylaxis Disposition - SNF - Patient Problems (1) Cellulitis Current Visit: Yes Status: Acute (2) Chronic ulcer of right leg Current Visit: Yes Status: Acute (3) Dehydration Current Visit: Yes Status: Acute (4) Sleep apnea Current Visit: Yes Status: Acute (5) Tinea cruris Current Visit: Yes Status: Acute (6) Lymphedema of leg Current Visit: Yes Status: Chronic (7) Microcytic anemia Current Visit: Yes Status: Chronic (8) Morbid obesity Current Visit: Yes Status: Chronic History Interval history: Patient was seen and evaluated this morning, patient was lying in bed comfortably. The main reason he come to the the hospital is for inability to taking care of himself. Hospitalist Physical - Physical exam Narrative exam: Not in cardiopulmonary distress. The patient is obese. Vital signs as documented. Head exam is unremarkable. No scleral icterus . Neck is without jugular venous distension, thyromegaly, or carotid bruits. Lungs are clear to auscultation. Cardiac exam reveals regular rate and Rhythm. First and second heart sounds normal. No murmurs, rubs or gallops. Abdominal exam reveals normal bowel sounds, no masses, no organomegaly and no aortic enlargement. Excoriation around the perineal area. Extremities are nonedematous and both femoral and pedal pulses are normal. [employer]ER: Alert and oriented 3. No focal weakness. - Constitutional Vitals: Temp Pulse Resp BP Pulse Ox 98.5 F 100 H 22 110/59 96 02/21/18 07:15 02/21/18 07:15 02/21/18 09:50 02/21/18 07:15 02/21/18 07:15 Results - Labs CBC & Chem 7: 02/20/18 04:48 02/20/18 04:48 Labs: Laboratory Last Values WBC 8.9 K/mm3 (4.5-11.0) 02/20/18 04:48 RBC 4.34 M/mm3 (3.65-5.03) 02/20/18 04:48 Hgb 9.0 gm/dl (11.8-15.2) L 02/20/18 04:48 Hct 27.8 % (35.5-45.6) L 02/20/18 04:48 MCV 64 fl (84-94) L 02/20/18 04:48 MCH 21 pg (28-32) L 02/20/18 04:48 MCHC 32 % (32-34) 02/20/18 04:48 RDW 17.2 % (13.2-15.2) H 02/20/18 04:48 Plt Count 367 K/mm3 (140-440) 02/20/18 04:48 Lymph % (Auto) 18.9 % (13.4-35.0) 02/20/18 04:48 [place] % (Auto) 5.1 % (0.0-7.3) 02/20/18 04:48 Eos % (Auto) 1.5 % (0.0-4.3) 02/20/18 04:48 Baso % (Auto) 0.4 % (0.0-1.8) 02/20/18 04:48 Lymph # 1.7 K/mm3 (1.2-5.4) 02/20/18 04:48 [place] # 0.5 K/mm3 (0.0-0.8) 02/20/18 04:48 Eos # 0.1 K/mm3 (0.0-0.4) 02/20/18 04:48 Baso # 0.0 K/mm3 (0.0-0.1) 02/20/18 04:48 Seg Neutrophils % 74.1 % (40.0-70.0) H 02/20/18 04:48 Seg Neutrophils # 6.6 K/mm3 (1.8-7.7) 02/20/18 04:48 PT 16.9 Sec. (12.2-14.9) H 02/18/18 18:42 INR 1.30 (0.87-1.13) H 02/18/18 18:42 APTT 37.6 Sec. (24.2-36.6) H 02/18/18 18:42 VBG pH 7.396 (7.320-7.420) 02/18/18 18:42 Sodium 140 mmol/L (137-145) 02/20/18 04:48 Potassium 3.9 mmol/L (3.6-5.0) 02/20/18 04:48 Chloride 103.0 mmol/L (98-107) 02/20/18 04:48 Carbon Dioxide 23 mmol/L (22-30) 02/20/18 04:48 Anion Gap 18 mmol/L 02/20/18 04:48 BUN 20 mg/dL (9-20) 02/20/18 04:48 Creatinine 1.2 mg/dL (0.8-1.5) 02/20/18 04:48 Estimated GFR > 60 ml/min 02/20/18 04:48 BUN/Creatinine Ratio 17 % 02/20/18 04:48 Glucose 94 mg/dL (75-100) 02/20/18 04:48 POC Glucose 97 (70-105) 02/21/18 06:46 Lactic Acid 1.80 mmol/L (0.7-2.0) 02/18/18 18:42 Calcium 7.2 mg/dL (8.4-10.2) L 02/20/18 04:48 Total Bilirubin 1.00 mg/dL (0.1-1.2) 02/18/18 18:42 AST 29 units/L (5-40) 02/18/18 18:42 ALT 15 units/L (7-56) 02/18/18 18:42 Alkaline Phosphatase 148 units/L (35-129) H 02/18/18 18:42 Total Protein 6.5 g/dL (6.3-8.2) 02/18/18 18:42 Albumin 2.3 g/dL (3.9-5) L 02/18/18 18:42 Albumin/Globulin Ratio 0.5 % 02/18/18 18:42 TSH 3.090 mlU/mL (0.270-4.200) 02/18/18 18:42 Free T4 0.99 ng/dL (0.76-1.46) 02/18/18 18:42 Urine Color Yellow (Yellow) 02/18/18 Unknown Urine Turbidity Clear (Clear) 02/18/18 Unknown Urine pH 6.0 (5.0-7.0) 02/18/18 Unknown Ur Specific [place] 1.009 (1.003-1.030) 02/18/18 Unknown Urine Protein <15 mg/dl mg/dL (Negative) 02/18/18 Unknown Urine Glucose (UA) Neg mg/dL (Negative) 02/18/18 Unknown Urine Ketones Neg mg/dL (Negative) 02/18/18 Unknown Urine Blood Mod (Negative) 02/18/18 Unknown Urine Nitrite Neg (Negative) 02/18/18 Unknown Urine Bilirubin Neg (Negative) 02/18/18 Unknown Urine Urobilinogen 2.0 mg/dL (<2.0) 02/18/18 Unknown Ur Leukocyte Esterase Lg (Negative) 02/18/18 Unknown Urine WBC (Auto) 76.0 /HPF (0.0-6.0) H 02/18/18 Unknown Urine RBC (Auto) 25.0 /HPF (0.0-6.0) 02/18/18 Unknown U Epithel Cells (Auto) 1.0 /HPF (0-13.0) 02/18/18 Unknown Urine Bacteria (Auto) 1+ /HPF (Negative) 02/18/18 Unknown Urine Mucus Few /HPF 02/18/18 Unknown Vancomycin Trough 36.6 ug/mL (5.0-20.0) H 02/20/18 19:37
== END 2018-02-21 19:30 | disposition home or self-care (01) | DRG 871 ==
LOC: ED 16:51 → 3A 22:50
PROVIDERS: ADMIT Internal Medicine; ATTEND Internal Medicine
PROC: 5A09357 Assistance with Respiratory Ventilation, Less than 24 Consecutive Hours, Continuous Positive Airway Pressure (ICD-10-PCS; principal; 2018-02-19)
DX: A41.9 Sepsis, unspecified organism (principal); E43 Unspecified severe protein-calorie malnutrition; L97.919 Non-pressure chronic ulcer of unspecified part of right lower leg with unspecified severity; Z68.41 Body mass index [BMI] 40.0-44.9, adult; L03.314 Cellulitis of groin; R73.9 Hyperglycemia, unspecified; E86.0 Dehydration; G47.30 Sleep apnea, unspecified; B35.6 Tinea cruris; I89.0 Lymphedema, not elsewhere classified; D50.9 Iron deficiency anemia, unspecified; E66.01 Morbid (severe) obesity due to excess calories; I73.9 Peripheral vascular disease, unspecified; M10.9 Gout, unspecified; I11.0 Hypertensive heart disease with heart failure; I50.9 Heart failure, unspecified
CPT/HCPCS: 36415; 70450; 71045; 80048; 80053; 80202; 81001; 82140; 82805; 82962; 84439; 84443; 85025; 85610; 85730; 87040; 87086; 94660; 94760; 96361; 96365; G8978-GP; G8979-GP; J1644; J2270; J2405; J2543; J3370; J7030; J7040